=== PATIENT | male | born 1935 | race Caucasian/White ===

== ENCOUNTER 2017-05-06 22:40 | Inpatient (IN) | payer MEDICARE ==
[~2017-05-06] VITALS: Ht 167.6 cm; Wt 92.1 kg
[2017-05-06 23:55] VITALS: BP 115/69
[2017-05-07 02:59] VITALS: BP 99/61
[2017-05-07 07:18] VITALS: BP 119/72
[2017-05-07] MEDS ORDERED: ACETAMINOPHEN 325 MG TABLET PO PRN (08:30)
[2017-05-07] MEDS ORDERED: ONDANSETRON 2MG/ML, 2ML IVPush PRN (08:30)
[2017-05-07] MEDS ORDERED: SODIUM CHLORIDE 0.9% 1,000 ML IV SCH (08:30)
[2017-05-07] MEDS ORDERED: ONDANSETRON ODT 4 MG PO PRN (08:30)
[2017-05-07] MEDS ORDERED: FURO20TA3 PO (09:04)
[2017-05-07] MEDS ORDERED: META800T PO (09:04)
[2017-05-07] MEDS ORDERED: FLEC100T PO (09:04)
[2017-05-07] MEDS ORDERED: BIMA2.5D EACHEYE (09:04)
[2017-05-07] MEDS ORDERED: METO50TA6 PO (09:04)
[2017-05-07] MEDS ORDERED: MONT10TA9 PO (09:04)
[2017-05-07] MEDS ORDERED: LEVO5TAB2 PO (09:04)
[2017-05-07] MEDS ORDERED: SPIR25TA3 PO (09:04)
[2017-05-07] MEDS ORDERED: SALM50DI IH (09:04)
[2017-05-07] MEDS ORDERED: SIMV20TA3 PO (09:04)
[2017-05-07] MEDS ORDERED: LEVO150T5 PO (09:04)
[2017-05-07] MEDS ORDERED: RIVA10TA PO (09:04)
[2017-05-07 09:48] LABS: BASOPHILS # (AUTO) 0.04 x10^3/uL (0-0.1); BASOPHILS % (AUTO) 0 % (0-1); EOSINOPHILS # (AUTO) 0.13 x10^3/uL (0-0.4); EOSINOPHILS % (AUTO) 1 % (1-7); LYMPHOCYTES # (AUTO) 1.32 x10^3/uL (1-3.4); LYMPHOCYTES % (AUTO) 13 % (22-44); MD NO; MEAN CORPUSCULAR HGB CONC 33.6 g/dL (33.2-36.2); MEAN CORPUSCULAR VOLUME 83.5 fL (81-97); MONOCYTES # (AUTO) 0.58 x10^3/uL (0.2-0.8); MONOCYTES % (AUTO) 6 % (2-9); NEUTROPHILS # (AUTO) 8.54 x10^3/uL (1.8-6.8); NEUTROPHILS % (AUTO) 80 % (42-75); PLATELET COUNT 132 x10^3/uL (130-400); RED BLOOD COUNT 4.98 x10^6/uL (4.38-5.82); RED CELL DISTRIBUTION WIDTH 15.5 % (9.4-14.8)
[2017-05-07] MEDS: FLECAINIDE 100MG TABLET PO SCH ×2 (13:35→21:00)
[2017-05-07] MEDS: METOPROLOL TARTRATE 50 MG TABLET PO SCH ×2 (13:36→21:05)
[2017-05-07] MEDS: FUROSEMIDE 20 MG TABLET PO SCH (13:36)
[2017-05-07] MEDS: SPIRONOLACTONE 25 MG TABLET PO SCH (13:37)
[2017-05-07] MEDS: METAXALONE 800 MG PO SCH ×2 (14:28→21:00)
[2017-05-07] MEDS: SALMETEROL XINAFOATE IH SCH ×2 (14:28→21:00)
[2017-05-07 15:54] VITALS: BP 117/71
[2017-05-07] MEDS ORDERED: SIMVASTATIN 20 MG TABLET PO SCH (21:00)
[2017-05-07] MEDS ORDERED: RIVAROXABAN 10 MG TABLET PO SCH (21:00)
[2017-05-07] MEDS ORDERED: MONTELUKAST 10 MG TABLET PO SCH (21:00)
[2017-05-07] MEDS ORDERED: (Bimatoprost (Lumigan) 1 DROP) EACHEYE SCH (21:00)
[2017-05-07] MEDS ORDERED: LEVOCETIRIZINE DIHYDROCHLORIDE PO SCH (21:00)
[2017-05-07 21:01] VITALS: BP 117/58
[2017-05-08 02:55] VITALS: BP 116/68
[2017-05-08] MEDS ORDERED: LEVOTHYROXINE 150 MCG TABLET PO SCH (06:00)
[2017-05-08 06:27] LABS: CHLORIDE 108 mmol/L (98-107)
[2017-05-08 06:39] LABS: TROPONIN I 0.029 ng/mL (0.000-0.045)
[2017-05-08 06:43] LABS: ALANINE AMINOTRANSFERASE 17 U/L (12-78); ALBUMIN 2.9 g/dL (3.4-5.0); ALKALINE PHOSPHATASE 42 U/L (45-117); ANION GAP 5 mmol/L (5-15); BILIRUBIN,TOTAL 0.6 mg/dL (0.2-1.0); CALCIUM 7.9 mg/dL (8.5-10.1); CREATININE 0.93 mg/dL (0.7-1.3)
[2017-05-08 07:03] VITALS: BP 118/63
[2017-05-08] MEDS: FUROSEMIDE 20 MG TABLET PO SCH (09:53)
[2017-05-08] MEDS: METOPROLOL TARTRATE 50 MG TABLET PO SCH (09:53)
[2017-05-08] MEDS: SPIRONOLACTONE 25 MG TABLET PO SCH (09:53)
[2017-05-08] MEDS: METAXALONE 800 MG PO SCH (09:54)
[2017-05-08] MEDS: SALMETEROL XINAFOATE IH SCH (09:54)
[2017-05-08] MEDS: FLECAINIDE 100MG TABLET PO SCH (09:55)
[2017-05-08 11:00] LABS: BASOPHILS # (AUTO) 0.04 x10^3/uL (0-0.1); BASOPHILS % (AUTO) 0 % (0-1); EOSINOPHILS # (AUTO) 0.19 x10^3/uL (0-0.4); EOSINOPHILS % (AUTO) 2 % (1-7); LYMPHOCYTES # (AUTO) 1.07 x10^3/uL (1-3.4); LYMPHOCYTES % (AUTO) 10 % (22-44); MD NO; MEAN CORPUSCULAR HEMOGLOBIN 27.9 pg (27.5-34.5); MEAN CORPUSCULAR HGB CONC 33.3 g/dL (33.2-36.2); MEAN CORPUSCULAR VOLUME 83.9 fL (81-97); MEAN PLATELET VOLUME 8.6 fL (7.4-10.4); MONOCYTES # (AUTO) 0.46 x10^3/uL (0.2-0.8); MONOCYTES % (AUTO) 4 % (2-9); NEUTROPHILS # (AUTO) 9.06 x10^3/uL (1.8-6.8); NEUTROPHILS % (AUTO) 84 % (42-75); PLATELET COUNT 142 x10^3/uL (130-400); RED BLOOD COUNT 5.11 x10^6/uL (4.38-5.82); RED CELL DISTRIBUTION WIDTH 15.2 % (9.4-14.8)
[2017-05-08 11:15] LABS: TROPONIN I 0.023 ng/mL (0.000-0.045)
[2017-05-08] MEDS ORDERED: NYST15PO9 TP (12:33)
[2017-05-08 13:32] VITALS: BP 120/76
== END 2017-05-08 13:52 | disposition home or self-care (01) | DRG 391 ==
LOC: 4WST 05-07 00:25 → DCLOUNGE 05-08 13:37
PROVIDERS: ADMIT Surgery; ATTEND Surgery
DX: K59.00 Constipation, unspecified (principal); I26.99 Other pulmonary embolism without acute cor pulmonale; J96.10 Chronic respiratory failure, unspecified whether with hypoxia or hypercapnia; I42.9 Cardiomyopathy, unspecified; E44.1 Mild protein-calorie malnutrition; I48.91 Unspecified atrial fibrillation; I50.22 Chronic systolic (congestive) heart failure; D72.829 Elevated white blood cell count, unspecified; Z99.81 Dependence on supplemental oxygen; E03.9 Hypothyroidism, unspecified; J45.909 Unspecified asthma, uncomplicated; E78.5 Hyperlipidemia, unspecified; Z20.828 Contact with and (suspected) exposure to other viral communicable diseases; Z79.01 Long term (current) use of anticoagulants; Z86.711 Personal history of pulmonary embolism; Z95.810 Presence of automatic (implantable) cardiac defibrillator; Z90.49 Acquired absence of other specified parts of digestive tract; R10.9 Unspecified abdominal pain; Z88.0 Allergy status to penicillin; Z88.6 Allergy status to analgesic agent; Z88.1 Allergy status to other antibiotic agents; N32.89 Other specified disorders of bladder
CPT/HCPCS: 36415; 80053; 83735; 84100; 84443; 84484; 85025; 93005; C8929; J7030